=== PATIENT | male | born 1995 | race American Indian/Alaskan Native ===

== ENCOUNTER 2019-04-12 13:56 | Emergency (ER) | payer SELFPAY ==
[2019-04-12 14:26] VITALS: BP 131/68
[2019-04-12] MEDS ORDERED: TETANUS,DIPH,PERTUSS(ACELL) VACCINE 0.5 ML SYRINGE IM ONE (15:00)
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
== END 2019-04-12 16:08 | disposition left against medical advice (07) ==
LOC: ED 13:56
DX: R51 Headache (principal); Z53.21 Procedure and treatment not carried out due to patient leaving prior to being seen by health care provider